=== PATIENT | female | born 1950 | race Caucasian/White ===

== ENCOUNTER → 2017-11-25 | Outpatient (REF) | payer BC ==
[2017-11-25 15:24] LABS: TOTAL 25(OH) VITAMIN D 23.9 NG/ML (30.0-100.0)
[2017-11-25 15:28] LABS: ALBUMIN 4.1 GM/DL (3.2-5.2); ALBUMIN/GLOBULIN RATIO 1.32 (1.00-1.93); ALKALINE PHOSPHATASE 62 U/L (45-117); ALT/SGPT 19 U/L (12-78); ANION GAP 4 MEQ/L (8-16); AST/SGOT 15 U/L (7-37); BILIRUBIN,TOTAL 0.4 MG/DL (0.2-1.0); BLOOD UREA NITROGEN 16 MG/DL (7-18); CALCIUM LEVEL 9.2 MG/DL (8.8-10.2); CARBON DIOXIDE LEVEL 31 MEQ/L (21-32); CHLORIDE LEVEL 105 MEQ/L (98-107); CHOLESTEROL LEVEL 205 MG/DL (<200); CHOLESTEROL RISK RATIO 5.125 (<5); CREATININE FOR GFR 0.91 MG/DL (0.55-1.30); GLOMERULAR FILTRATION RATE > 60.0 (>45); GLUCOSE, FASTING 95 MG/DL (70-100); HDL CHOLESTEROL 40 MG/DL (>40); LDL CHOLESTEROL 125.2 MG/DL (<100); NON-HDL-C 165 MG/DL; SODIUM LEVEL 140 MEQ/L (136-145); TOTAL PROTEIN 7.2 GM/DL (6.4-8.2); TRIGLYCERIDES LEVEL 199 MG/DL (<150)
== END ==
LOC: M SFHCLACO 08:20
DX: E78.2 Mixed hyperlipidemia (principal); E55.9 Vitamin D deficiency, unspecified
CPT/HCPCS: 80053

== ENCOUNTER → 2017-12-13 | Outpatient (CLI) | payer BC ==
[~2017-12-13] MED LIST: ISOVUE-370 76% 100ML VIAL (Q9967) As Ordered
== END ==
LOC: M RAD 14:14
DX: R22.1 Localized swelling, mass and lump, neck (principal)

== ENCOUNTER 2017-12-31 10:21 | Day surgery (SDC) | payer BC ==
[2017-12-31] MEDS: NS 1,000 ML IV (12:34)
[2017-12-31] MEDS ORDERED: PROPOFOL 500 MG/50 ML VIAL As Ordered (12:45)
[2017-12-31] MEDS ORDERED: LIDOCAINE 2% INJ 100 MG/5 ML SDV (FOR ANES.) As Ordered (12:53)
[2017-12-31] MEDS ORDERED: GLYCOPYRROLATE INJ 0.2 MG/ML 2 ML VIAL As Ordered (13:28)
== END 2017-12-31 14:23 | disposition home or self-care (01) ==
LOC: M OPP 14:23
DX: K58.1 Irritable bowel syndrome with constipation (principal); R10.9 Unspecified abdominal pain; R19.4 Change in bowel habit; K57.30 Diverticulosis of large intestine without perforation or abscess without bleeding; Q43.8 Other specified congenital malformations of intestine; K64.4 Residual hemorrhoidal skin tags; R12 Heartburn; K44.9 Diaphragmatic hernia without obstruction or gangrene; F41.9 Anxiety disorder, unspecified; F32.9 Major depressive disorder, single episode, unspecified; E55.9 Vitamin D deficiency, unspecified; K57.32 Diverticulitis of large intestine without perforation or abscess without bleeding; K29.70 Gastritis, unspecified, without bleeding; M19.90 Unspecified osteoarthritis, unspecified site; L40.9 Psoriasis, unspecified; R01.1 Cardiac murmur, unspecified; Z85.828 Personal history of other malignant neoplasm of skin; Z88.8 Allergy status to other drugs, medicaments and biological substances; Z79.899 Other long term (current) drug therapy; Z80.3 Family history of malignant neoplasm of breast; Z80.0 Family history of malignant neoplasm of digestive organs
CPT/HCPCS: 45378

== ENCOUNTER → 2021-05-23 | Outpatient (REF) | payer MEDICARE, OTHER ==
[~2021-05-23] MED LIST changes: -ISOVUE-370 76% 100ML VIAL (Q9967) As Ordered; +LINZ145C PO; +STEL45IN2 SC
[2021-05-23 12:46] LABS: HEMATOCRIT 35.6 % (36.0-47.0); HEMOGLOBIN 10.7 g/dl (12.0-15.5); MEAN CORPUSCULAR HGB CONC 30.1 g/dl (32.0-36.5); MEAN CORPUSCULAR VOLUME 96.5 fl (80.0-96.0); PLATELET COUNT, AUTOMATED 315 10^3/uL (150-450); RED BLOOD COUNT 3.69 10^6/uL (4.00-5.40); WHITE BLOOD COUNT 28.6 10^3/uL (4.0-10.0)
[2021-05-23 13:12] LABS: ALBUMIN 4.1 GM/DL (3.2-5.2); ALT/SGPT 21 U/L (12-78); BILIRUBIN,TOTAL 0.4 MG/DL (0.2-1.0); BLOOD UREA NITROGEN 13 MG/DL (7-18); CALCIUM LEVEL 8.8 MG/DL (8.8-10.2); CARBON DIOXIDE LEVEL 27 MEQ/L (21-32); CHLORIDE LEVEL 107 MEQ/L (98-107); CHOLESTEROL LEVEL 192 MG/DL (<200); CHOLESTEROL RISK RATIO 5.485 (<5); CREATININE FOR GFR 0.87 MG/DL (0.55-1.30); FERRITIN 124 NG/ML (8-252); GLOMERULAR FILTRATION RATE > 60.0 (>39); GLUCOSE, FASTING 93 MG/DL (70-100); HDL CHOLESTEROL 35 MG/DL (>40); IRON (FE) 76 UG/DL (50-170); LDL CHOLESTEROL 117 MG/DL (<100); NON-HDL-C 157 MG/DL; PERCENT SATURATION 21.7 % (13.2-45.0); POTASSIUM SERUM 4.5 MEQ/L (3.5-5.1); SODIUM LEVEL 139 MEQ/L (136-145); TOTAL IRON BINDING CAPACITY 351 UG/DL (250-450); TRIGLYCERIDES LEVEL 198 MG/DL (<150)
== END ==
LOC: M SFHCADAM 08:11
PROVIDERS: ATTEND Physician Assistant
DX: E78.2 Mixed hyperlipidemia (principal); K21.9 Gastro-esophageal reflux disease without esophagitis; E55.9 Vitamin D deficiency, unspecified; D50.8 Other iron deficiency anemias; Z79.899 Other long term (current) drug therapy

== ENCOUNTER → 2021-05-29 | Outpatient (REF) | payer MEDICARE, OTHER ==
[2021-05-29 13:21] LABS: AMYLASE 40 U/L (25-115); LIPASE 145 U/L (73-393)
== END ==
LOC: M SFHCADAM 09:55
PROVIDERS: ATTEND Family Medicine
DX: R10.13 Epigastric pain (principal)

== ENCOUNTER → 2021-05-29 | Outpatient (CLI) | payer MEDICARE, OTHER ==
--- NOTE | 2021-05-29 10:35 | REP ---
INDICATION: LEUKOCYTOSIS COMPARISON: 10/24/2010 TECHNIQUE: PA and lateral. FINDINGS: The mediastinum and cardiac silhouette are normal. The lung cameron are clear and without acute consolidation, effusion, or pneumothorax. The skeletal structures are intact and normal. IMPRESSION: No acute cardiopulmonary process. <Electronically signed by Gaetano Scott > 05/29/21 1032
== END ==
LOC: M ADAMS 09:58
PROVIDERS: ATTEND Family Medicine
DX: D72.829 Elevated white blood cell count, unspecified (principal)

== ENCOUNTER → 2021-07-01 | Outpatient (REF) | payer OTHER ==
[~2021-07-01] MED LIST changes: +OMEP-221 PO
[2021-07-01 13:10] LABS: BASO # 0.4 10^3/uL (0.0-0.2); BASO % 1.1 % (0.0-1.0); EOS # 0.1 10^3/uL (0.0-0.5); EOS % 0.1 % (0.0-3.0); HEMATOCRIT 36.2 % (36.0-47.0); HEMOGLOBIN 11.1 g/dl (12.0-15.5); LYMPH # 3.3 10^3/uL (1.5-5.0); LYMPH % 9.5 % (24.0-44.0); MEAN CORPUSCULAR HEMOGLOBIN 29.4 pg (27.0-33.0); MEAN CORPUSCULAR HGB CONC 30.7 g/dl (32.0-36.5); MONO # 2.4 10^3/uL (0.0-0.8); NEUTROPHILS # 18.7 10^3/uL (1.5-8.5); NEUTROPHILS % 53.7 % (36.0-66.0); PLATELET COUNT, AUTOMATED 383 10^3/uL (150-450); RED BLOOD COUNT 3.77 10^6/uL (4.00-5.40)
[2021-07-01 13:19] LABS: WHITE BLOOD COUNT 34.8 10^3/uL (4.0-10.0)
== END ==
LOC: M LABDRWAD 12:49
PROVIDERS: ATTEND Specialist
DX: D72.829 Elevated white blood cell count, unspecified (principal)

== ENCOUNTER → 2021-07-04 | Outpatient (CLI) | payer OTHER ==
[~2021-07-04] MED LIST changes: +GASTROGRAFIN SOLUTION 30ML (Q9963) As Ordered ONE; +ISOVUE-370 76% 100ML VIAL As Ordered ONE
--- NOTE | 2021-07-06 08:54 | REP ---
INDICATION: NEUTROPHILIA. COMPARISON: 09/07/2012 the only prior TECHNIQUE: Standard helical technique after the intravenous administration of 100 cc Isovue 370 and oral bowel preparatory contrast administration. FINDINGS: The liver is within normal limits. The gallbladder is unremarkable. Significant splenomegaly has developed since the last exam. The maximal splenic dimension is 21.3 cm. The pancreas, adrenal glands, and kidneys are within normal limits. The abdominal aorta and para-aortic regions are within normal limits. The bowel loops and the mesenteries are within normal limits. There is no evidence of a mass or adenopathy. There is no free fluid or free air. Bone window technique through the examination shows an unusual mixed medullary pattern of increased density particularly affecting the pelvis and spine and representing a change compared to the prior exam. IMPRESSION: 1. Splenomegaly as described above. 2. Unusual appearance of the skeletal structures as described above. The etiology is uncertain. Further workup is warranted. <Electronically signed by Jose Otero > 07/06/21 0847
--- NOTE | 2021-07-06 08:58 | REP ---
INDICATION: NEUTROPHILIA COMPARISON: None. TECHNIQUE: Standard helical technique after the intravenous administration of 100 cc Isovue 370 FINDINGS: The mediastinum and pulmonary guillermo are within normal limits. There are no pleural or pericardial effusions. The imaged osseous structures show an unusual pattern of increased patchy density throughout the imaged axial and appendicular skeleton. Evaluation of the lung cameron shows 2 small subpleural nodules in the posterior left lower lobe the largest of which measures 5 mm. When compared to the lung base images of the 09/07/2012 CT these are unchanged. No other abnormal nodules, masses, or opacities are present. IMPRESSION: Unusual appearance of the skeletal structures as described above. Etiology is uncertain. Further workup is warranted. <Electronically signed by Jose Otero > 07/06/21 1634
== END ==
LOC: M RAD 15:56
PROVIDERS: ATTEND Specialist
DX: D70.9 Neutropenia, unspecified (principal)
CPT/HCPCS: 71260; 74177; Q9963; Q9967

== ENCOUNTER → 2021-07-17 | Outpatient (CLI) | payer OTHER ==
[~2021-07-17] MED LIST changes: -GASTROGRAFIN SOLUTION 30ML (Q9963) As Ordered ONE; -ISOVUE-370 76% 100ML VIAL As Ordered ONE; +OMEGA-3 1000MG CAPSULE ONE
--- NOTE | 2021-07-19 09:32 | REPVR ---
PROCEDURE INFORMATION: Exam: MR Cervical Spine Without Contrast Exam date and time: 07/17/2021 3:14 PM Age: 71 years old Clinical indication: Neck pain. TECHNIQUE: Imaging protocol: Multiplanar magnetic resonance images of the cervical spine without contrast. COMPARISON: CT Neck with contrast 12/13/2017 2:39 PM FINDINGS: Vertebrae: Unremarkable. Spinal cord: Normal signal. No cord compression. C2-C3: No significant disc disease. No significant spinal stenosis. C3-C4: There is disc desiccation. There is mild ventral ridging which flattens the ventral thecal sac. C4-C5: There is disc desiccation. There is mild ventral ridging which flattens the ventral thecal sac. There is bilateral uncovertebral joint arthropathy, worse on the right. There is mild right-sided neuroforaminal narrowing. C5-C6: There is disc desiccation. There is a moderate disc/osteophyte complex, partial toward the right, that flattens the ventral thecal sac and compromises the right neural foramen. There is bilateral uncovertebral joint arthropathy, worse on the right. There is moderate bilateral neural foraminal narrowing, right worse than left. There is mild spinal canal stenosis. C6-C7: There is disc desiccation. There is a moderate disc/osteophyte complex that flattens the ventral thecal sac. There is a moderate left paracentral disc protrusion. There is moderate bilateral uncovertebral joint arthropathy. There is mild bilateral neuroforaminal narrowing, left worse than right. There is mild spinal canal stenosis. C7-T1: No significant disc disease. No significant spinal stenosis. Soft tissues: Unremarkable. Brain: There are chronic brainstem ischemic changes. IMPRESSION: 1. Multilevel degenerative changes causing varying degrees of spinal canal and neuroforaminal narrowing. Please see details above. 2. There are chronic brainstem ischemic changes. Electronically signed by: Saul Medina On 07/19/2021 09:31:12 AM
--- NOTE | 2021-07-19 09:34 | REPVR ---
PROCEDURE INFORMATION: Exam: MR Thoracic Spine Without Contrast Exam date and time: 07/17/2021 3:15 PM Age: 71 years old Clinical indication: Pain in thoracic spine. TECHNIQUE: Imaging protocol: Multiplanar magnetic resonance images of the thoracic spine without contrast. COMPARISON: MRI-Spine,Cervical without con 07/17/2021 2:18 PM FINDINGS: Vertebrae: Unremarkable. Spinal cord: See "Discs/Spinal canal/Neural foramina" finding. Discs/Spinal canal/Neural foramina: There are mild degenerative changes throughout the thoracic spine including disc space narrowing, disc desiccation, and occasional disc bulges. There is no significant spinal canal stenosis or thoracic cord compression. Soft tissues: Unremarkable. IMPRESSION: There are mild degenerative changes throughout the thoracic spine including disc space narrowing, disc desiccation, and occasional disc bulges. There is no significant spinal canal stenosis or thoracic cord compression. Electronically signed by: Saul Medina On 07/19/2021 09:34:11 AM
== END ==
LOC: M PLAIMG 13:52
PROVIDERS: ATTEND Internal Medicine Medical Oncology
DX: D72.828 Other elevated white blood cell count (principal)

== ENCOUNTER → 2021-07-21 | Outpatient (CLI) | payer OTHER ==
[~2021-07-21] MED LIST changes: -OMEGA-3 1000MG CAPSULE ONE
--- NOTE | 2021-07-21 16:08 | REP ---
INDICATION: NEUROPHILIA, ABN CT. COMPARISON: Prior CT 07/04/2021 TECHNIQUE: 3T multiplanar MRI imaging of the was obtained using various sequences. FINDINGS: There is diffuse low T1 signal throughout the marrow of the pelvis and proximal femora. This same marrow is of T2 hyper signal. The sacroiliac joints and hip joints are within normal limits for the patient's age. There is no evidence of a mass or mass effect. There is no joint effusion. There is no evidence of adenopathy. The signal within the musculature and adipose tissue is within normal limits. IMPRESSION: There are diffuse marrow signal changes as described above. This is consistent with marrow reconversion. Marrow reconversion can be seen in marrow hyperplasia due to underlying marrow replacement diseases such as leukemia and lymphoma to name a few. There are also physiologic causes such as severe chronic anemia, spherocytosis, and in those who abuse tobacco. [place] runner scan also have this type of reconversion pattern. This finding needs to be correlated clinically with appropriate follow-up. <Electronically signed by Jose Otero > 07/21/21 [id number]
--- NOTE | 2021-07-22 18:32 | REPVR ---
PROCEDURE INFORMATION: Exam: MR Lumbar Spine Without Contrast Exam date and time: 07/21/2021 3:19 PM Age: 71 years old Clinical indication: Low back pain; Additional info: Neurophilia, abn CT TECHNIQUE: Imaging protocol: Multiplanar magnetic resonance images of the lumbar spine without intravenous contrast. COMPARISON: MRI-Spine,Thoracic without con 07/17/2021 2:45 PM FINDINGS: Vertebral body heights are maintained. No abnormal marrow signal. No cord compression. No abnormal cord signal. Conus medullaris terminates at the L1 level. Paravertebral soft tissues are unremarkable. Severe splenomegaly, of unknown etiology. L1-L2: No significant canal or foraminal narrowing. L2-L3: No significant canal or foraminal narrowing. L3-L4: Slight broad-based disc bulge causing mild left foraminal narrowing. No significant canal narrowing. L4-L5: No significant canal or foraminal narrowing. L5-S1: No significant canal or foraminal narrowing. IMPRESSION: 1. No acute findings in the lumbar spine. 2. Severe splenomegaly, of unknown etiology. Recommend hematology consultation. Electronically signed by: Neftali Trinidad On 07/22/2021 18:32:17 PM
== END ==
LOC: M PLAIMG 13:55
PROVIDERS: ATTEND Internal Medicine Medical Oncology
DX: D71 Functional disorders of polymorphonuclear neutrophils (principal); R93.5 Abnormal findings on diagnostic imaging of other abdominal regions, including retroperitoneum

== ENCOUNTER → 2021-08-13 | Outpatient (CLI) | payer OTHER ==
[~2021-08-13] MED LIST changes: +CLOB0.0526 TOP; +LIDOCAINE 1% MDV 20ML VIAL As Ordered ONE; +SUCR1TAB56; +ZOLP10TA2; +[UNRECOGNIZED DRUG - CODE] TOP
[2021-08-13 12:42] LABS: BASO # 0.7 10^3/uL (0.0-0.2); EOS # 0.1 10^3/uL (0.0-0.5); EOS % 0.1 % (0.0-3.0); HEMATOCRIT 33.4 % (36.0-47.0); HEMOGLOBIN 10.3 g/dl (12.0-15.5); LYMPH # 2.7 10^3/uL (1.5-5.0); LYMPH % 8.1 % (24.0-44.0); MEAN CORPUSCULAR HEMOGLOBIN 29.4 pg (27.0-33.0); MEAN CORPUSCULAR HGB CONC 30.8 g/dl (32.0-36.5); MEAN CORPUSCULAR VOLUME 95.4 fl (80.0-96.0); MONO # 2.2 10^3/uL (0.0-0.8); MONO % 6.3 % (2.0-8.0); NEUTROPHILS # 18.9 10^3/uL (1.5-8.5); NEUTROPHILS % 55.8 % (36.0-66.0); PLATELET COUNT, AUTOMATED 343 10^3/uL (150-450)
[2021-08-13 14:55] VITALS: BP 108/60
--- NOTE | 2021-08-13 17:27 | REP ---
INDICATION: LEUKOCYTOSIS. COMPARISON: None. TECHNIQUE: The procedure was procedure performed under the direct supervision of Dr. Gonzales. The risks and benefits of the procedure were explained to the patient and informed consent was obtained. The left iliac bone was localized using CT guidance. The skin was prepped and draped in a sterile fashion. Two mL of 1% lidocaine was used as local anesthetic. Using CT guidance an 11 gauge bone marrow biopsy system was inserted. 10 mL of marrow fluid was withdrawn. One core biopsy sample was then obtained. Estimated blood loss: Less than 1 mL The patient tolerated the procedure well and there were no immediate complications. After the appropriate amount to monitored convalescence the patient was discharged from the department. FINDINGS: None IMPRESSION: CT-guided left iliac bone marrow biopsy. <Electronically signed by Cem Corral > 08/13/21 [id number] <Electronically signed by Luis Miguel Gonzales > 08/13/21 [id number]
== END ==
LOC: M IRPRO 11:51
PROVIDERS: ATTEND Specialist
DX: D47.1 Chronic myeloproliferative disease (principal); M85.80 Other specified disorders of bone density and structure, unspecified site